=== PATIENT | male | born 1980 | race Caucasian/White ===

== ENCOUNTER 2023-11-15 09:14 | Inpatient (IN) | payer BC ==
[~2023-11-15] VITALS: Ht 177.8 cm; Wt 116.6 kg
[2023-11-15] MEDS: 0.9%NACL 1000ML 2,190 ML IV ONE (09:38)
[2023-11-15] MEDS: ONDANSETRON 4MG INJ IVP ONE (09:45)
[2023-11-15] MEDS: NITROGLYCERIN 1GM OINT 1 INCH/1GM TD ONE (09:46)
[2023-11-15 10:01] LABS: BASOPHILS # (AUTO) 0.03 K/uL (0.00-0.20); BASOPHILS % (AUTO) 0.3 % (0.0-5.0); HEMATOCRIT 50.6 % (42-54); IMMATURE GRANULOCYTE ABSOLUTE 0.04 K/uL (0-1); LYMPHOCYTES # (AUTO) 1.2 K/uL (1.0-4.8); LYMPHOCYTES % (AUTO) 9.7 % (21.0-51.0); MEAN CORPUSCULAR HGB CONC 37.4 g/dL (32.0-36.0); MEAN CORPUSCULAR VOLUME 88.5 fL (79-99); MONOCYTES # (AUTO) 0.9 K/uL (0.1-1.0); MONOCYTES % (AUTO) 7.3 % (3.0-13.0); NEUTROPHILS # (AUTO) 9.8 K/uL (1.8-7.7); NEUTROPHILS % (AUTO) 82.4 % (40.0-77.0); PLATELET COUNT (AUTO) 161 K/uL (130-400); RED BLOOD CELL COUNT(AUTO) 5.72 MIL/uL (4.50-6.20); RED CELL DISTRIBUTION WIDTH 15.2 % (11.0-15.5); WHITE BLOOD COUNT (AUTO) 11.9 K/uL (4.8-10.8)
[2023-11-15 10:12] LABS: CREATININE 1.5 mg/dL (0.5-1.3)
[2023-11-15 10:14] LABS: POTASSIUM 2.8 mmol/L (3.5-5.1)
[2023-11-15 10:17] LABS: SARS-CoV-2, RNA, NAAT NEGATIVE SARS CoV-2 (NEGATIVE)
[2023-11-15 10:23] LABS: INFLUENZA TYPE A Negative For Type A (NEGATIVE); INFLUENZA TYPE B Negative For Type B (NEGATIVE)
[2023-11-15] MEDS: POTASSIUM CHLORIDE 20MEQ/100ML 100 ML IV ONE (10:25)
[2023-11-15] MEDS: KETOROLAC 15MG/ML VIAL (15MG/ML) IV ONE (10:25)
[2023-11-15] MEDS: CEFTRIAXONE 2GM VIAL IVPB ONE (10:38)
[2023-11-15 10:49] LABS: ALBUMIN 4.2 g/dL (3.5-5.0); BILIRUBIN,DIRECT 0.8 mg/dL (0.0-0.3); BILIRUBIN,TOTAL 2.5 mg/dL (0.2-1.0); TOTAL PROTEIN, SERUM 8.1 g/dL (6.0-8.3)
[2023-11-15] MEDS ORDERED: POTASSIUM CHLORIDE 10% ELIXIR 20 MEQ/15 ML UDCUP PO PRN (12:30)
[2023-11-15] MEDS ORDERED: RENAL DOSE IV SCH (12:30)
[2023-11-15] MEDS ORDERED: ZOSYN 3.375GM +NS 50ML IVPB SCH ×2 (13:00→15:00)
[2023-11-15] MEDS: PANTOPRAZOLE 40 MG/VIAL IVP SCH (13:11)
[2023-11-15] MEDS: DOXYCYCLINE 100MG+NS 250ML 250 ML IV SCH (13:12)
[2023-11-15] MEDS: 0.9%NACL 1000ML 1,000 ML IV SCH (13:12)
[2023-11-15 13:39] LABS: HEMOGLOBIN A1C 4.8 % (4.0-6.0); INR 1.11 (0.85-1.15); PROTHROMBIN TIME 11.9 SEC (9.6-11.6)
[2023-11-15 13:40] LABS: PARTIAL THROMBOPLASTIN TIME 26.7 SEC (26.3-35.5)
[2023-11-15 13:55] LABS: MAGNESIUM 1.7 mg/dL (1.80-2.40); THYROID STIMULATING HORMONE 1.1 uIU/mL (0.36-3.74)
[2023-11-15] MEDS ORDERED: DOXY100T2 PO (15:24)
[2023-11-15] MEDS ORDERED: ONDA-243 PO (15:24)
[2023-11-15 15:47] LABS: APPEARANCE,URINE CLEAR (CLEAR); BILIRUBIN,URINE NEGATIVE (NEGATIVE); COLOR,URINE YELLOW (YELLOW); GLUCOSE, URINE (UA) 30 mg/dL (NEGATIVE); KETONES,URINE 100 mg/dL (NEGATIVE); LEUKOCYTE ESTERASE ,URINE NEGATIVE Leu/uL (NEGATIVE); NITRATE,URINE NEGATIVE (NEGATIVE); OCCULT BLOOD,URINE NEGATIVE (NEGATIVE); PH,URINE 6.5 (5.0-8.0); PROTEIN,URINE 100 mg/dL (NEGATIVE)
[2023-11-15 15:49] LABS: ADD UA MICROSCOPIC YES
[2023-11-15 15:51] LABS: MUCUS,URINE RARE LPF (None Seen); RBC,URINE 0-1 /HPF (0-1); SQUAMOUS EPITHELIAL CELL,UR RARE /HPF (0-2); WBC,URINE 0-1 /HPF (0-1)
[2023-11-15 16:00] VITALS: BP 160/101; PULSE 81; RESP 18
[2023-11-15] MEDS: ONDANSETRON 4MG INJ IVP PRN (16:03)
[2023-11-15] MEDS: ACETAMINOPHEN 500 MG TABLET PO PRN (16:07)
[2023-11-15] MEDS: AMLODIPINE 5 MG TAB PO SCH (16:07)
[2023-11-15] MEDS: ZOSYN 3.375GM +NS 50ML IVPB SCH (16:09)
[2023-11-15 16:19] LABS: AMPHET/METH SCREEN,URINE NEGATIVE (NEGATIVE); BARBITURATE SCREEN, URINE NEGATIVE (NEGATIVE); BENZODIAZEPINES SCREEN,URINE NEGATIVE (NEGATIVE); CANNABINOID SCREEN,URINE NEGATIVE (NEGATIVE); COCAINE SCREEN,URINE NEGATIVE (NEGATIVE); OPIATE SCREEN,URINE NEGATIVE (NEGATIVE); PHENCYCLIDINE SCREEN,URINE NEGATIVE (NEGATIVE)
[2023-11-15 16:40] VITALS: O2SAT 100
[2023-11-15 19:05] VITALS: BP 149/96; PULSE 89; RESP 20
[2023-11-15] MEDS ORDERED: PHARMACY COMMUNICATION MISC PRN (19:30)
[2023-11-15] MEDS: KCL 20 MEQ ERTAB PO PRN (19:48)
[2023-11-15] MEDS: FAMOTIDINE 20MG TAB PO SCH (19:49)
[2023-11-15] MEDS: THIAMINE HCL 100 MG/ML 2ML VIAL IVP SCH (19:50)
[2023-11-15 20:00] VITALS: O2SAT 97
[2023-11-16] VITALS (27 sets, daily range): BP systolic 117–197; BP diastolic 78–121; PULSE 69–111; RESP 18–20; O2SAT 96–97
[2023-11-16 04:27] LABS: BASOPHILS # (AUTO) 0.02 K/uL (0.00-0.20); BASOPHILS % (AUTO) 0.2 % (0.0-5.0); HEMATOCRIT 40.7 % (42-54); IMMATURE GRANULOCYTE ABSOLUTE 0.04 K/uL (0-1); LYMPHOCYTES # (AUTO) 0.9 K/uL (1.0-4.8); LYMPHOCYTES % (AUTO) 9.1 % (21.0-51.0); MEAN CORPUSCULAR HEMOGLOBIN 32.7 pg (27.0-33.0); MEAN CORPUSCULAR HGB CONC 35.6 g/dL (32.0-36.0); MEAN CORPUSCULAR VOLUME 91.9 fL (79-99); MONOCYTES # (AUTO) 0.7 K/uL (0.1-1.0); MONOCYTES % (AUTO) 7.3 % (3.0-13.0); NEUTROPHILS # (AUTO) 8.2 K/uL (1.8-7.7); PLATELET COUNT (AUTO) 122 K/uL (130-400); RED BLOOD CELL COUNT(AUTO) 4.43 MIL/uL (4.50-6.20); RED CELL DISTRIBUTION WIDTH 15.2 % (11.0-15.5); WHITE BLOOD COUNT (AUTO) 9.8 K/uL (4.8-10.8)
[2023-11-16 04:51] LABS: ALBUMIN 3.1 g/dL (3.5-5.0); BILIRUBIN,TOTAL 1.6 mg/dL (0.2-1.0); CREATININE 1.2 mg/dL (0.5-1.3); MAGNESIUM 1.8 mg/dL (1.80-2.40); POTASSIUM 3.5 mmol/L (3.5-5.1); TOTAL PROTEIN, SERUM 6.2 g/dL (6.0-8.3)
[2023-11-16] MEDS: MAGNESIUM 2GM PREMIX 50ML 50 ML IV SCH (05:41)
[2023-11-16] MEDS: HYDRALAZINE 20MG/ML VIAL IV PRN (07:43)
[2023-11-16] MEDS: HYDROCHLOROTHIAZIDE 25 MG TABLET PO SCH (08:45)
[2023-11-16] MEDS: LOSARTAN 50 MG TABLET PO SCH (08:45)
[2023-11-16] MEDS: CHLORDIAZEPOXIDE HCL 25 MG CAP PO PRN (10:06)
[2023-11-16] MEDS: AMLODIPINE 5 MG TAB PO SCH (11:06)
[2023-11-16] MEDS: HYDRALAZINE 25MG TABLET PO SCH ×2 (11:07→13:00)
[2023-11-16] MEDS: LABETALOL 20MG SYG IV ONE ×2 (11:19)
[2023-11-16] MEDS: LORAZEPAM 2 MG/ML 1 ML VIAL IVP PRN (13:52)
[2023-11-16 19:37] LABS: INR 1.01 (0.85-1.15); PROTHROMBIN TIME 10.9 SEC (9.6-11.6)
[2023-11-16 19:38] LABS: PARTIAL THROMBOPLASTIN TIME 27.3 SEC (26.3-35.5)
[2023-11-17] VITALS (11 sets, daily range): BP systolic 150–195; BP diastolic 85–118; PULSE 93–117; RESP 18–20; O2SAT 98–100
[2023-11-17 04:04] LABS: BASOPHILS # (AUTO) 0.04 K/uL (0.00-0.20); BASOPHILS % (AUTO) 0.4 % (0.0-5.0); EOSINOPHILS # (AUTO) 0.01 K/uL (0.00-0.70); EOSINOPHILS % (AUTO) 0.1 % (0.0-8.0); HEMATOCRIT 45.8 % (42-54); LYMPHOCYTES % (AUTO) 9.3 % (21.0-51.0); MEAN CORPUSCULAR HGB CONC 34.9 g/dL (32.0-36.0); MEAN CORPUSCULAR VOLUME 91.6 fL (79-99); MONOCYTES # (AUTO) 0.9 K/uL (0.1-1.0); MONOCYTES % (AUTO) 8.2 % (3.0-13.0); NEUTROPHILS # (AUTO) 8.5 K/uL (1.8-7.7); PLATELET COUNT (AUTO) 131 K/uL (130-400); RED CELL DISTRIBUTION WIDTH 15.4 % (11.0-15.5); WHITE BLOOD COUNT (AUTO) 10.5 K/uL (4.8-10.8)
[2023-11-17 04:14] LABS: MAGNESIUM 2.1 mg/dL (1.80-2.40); PHOSPHORUS 3.4 mg/dL (2.5-4.9)
[2023-11-17 04:31] LABS: POTASSIUM 2.6 mmol/L (3.5-5.1)
[2023-11-17] MEDS: POTASSIUM CHLORIDE 10MEQ/100ML 100 ML IV PRN (04:34)
[2023-11-17] MEDS: KCL 20 MEQ ERTAB PO ONE (05:39)
[2023-11-17] MEDS: POTASSIUM CHLORIDE 10MEQ SR TAB PO PRN (09:47)
[2023-11-17] MEDS: ENOXAPARIN SODIUM 40 MG/0.4 ML SYRINGE SQ SCH (21:16)
[2023-11-18] VITALS (7 sets, daily range): BP systolic 155–173; BP diastolic 77–106; PULSE 109–118; RESP 18–20; O2SAT 96
[2023-11-18 04:08] LABS: BASOPHILS # (AUTO) 0.04 K/uL (0.00-0.20); BASOPHILS % (AUTO) 0.4 % (0.0-5.0); EOSINOPHILS # (AUTO) 0.07 K/uL (0.00-0.70); EOSINOPHILS % (AUTO) 0.7 % (0.0-8.0); HEMATOCRIT 47.5 % (42-54); IMMATURE GRANULOCYTE ABSOLUTE 0.07 K/uL (0-1); LYMPHOCYTES # (AUTO) 0.9 K/uL (1.0-4.8); LYMPHOCYTES % (AUTO) 9.3 % (21.0-51.0); MEAN CORPUSCULAR HEMOGLOBIN 32.2 pg (27.0-33.0); MEAN CORPUSCULAR HGB CONC 34.9 g/dL (32.0-36.0); MEAN CORPUSCULAR VOLUME 92.1 fL (79-99); MONOCYTES # (AUTO) 0.7 K/uL (0.1-1.0); MONOCYTES % (AUTO) 7.6 % (3.0-13.0); NEUTROPHILS # (AUTO) 7.8 K/uL (1.8-7.7); NEUTROPHILS % (AUTO) 81.3 % (40.0-77.0); PLATELET COUNT (AUTO) 156 K/uL (130-400); RED BLOOD CELL COUNT(AUTO) 5.16 MIL/uL (4.50-6.20); RED CELL DISTRIBUTION WIDTH 15.3 % (11.0-15.5); WHITE BLOOD COUNT (AUTO) 9.6 K/uL (4.8-10.8)
[2023-11-18 04:32] LABS: CREATININE 1.2 mg/dL (0.5-1.3); POTASSIUM 3.1 mmol/L (3.5-5.1)
[2023-11-18] MEDS: LACTULOSE 20 GM/30 ML UDCUP PO SCH (14:07)
[2023-11-18] MEDS: HYDRALAZINE 25MG TABLET PO SCH (16:01)
[2023-11-19] VITALS (10 sets, daily range): BP systolic 132–177; BP diastolic 93–109; PULSE 98–114; RESP 18–20; O2SAT 94–99
[2023-11-19] MEDS ORDERED: LACTULOSE 20 GM/30 ML UDCUP PO PRN (00:30)
[2023-11-19 03:32] LABS: BASOPHILS # (AUTO) 0.05 K/uL (0.00-0.20); BASOPHILS % (AUTO) 0.5 % (0.0-5.0); EOSINOPHILS # (AUTO) 0.11 K/uL (0.00-0.70); EOSINOPHILS % (AUTO) 1.2 % (0.0-8.0); HEMATOCRIT 45.8 % (42-54); IMMATURE GRANULOCYTE ABSOLUTE 0.06 K/uL (0-1); LYMPHOCYTES % (AUTO) 10.9 % (21.0-51.0); MEAN CORPUSCULAR HGB CONC 34.5 g/dL (32.0-36.0); MEAN CORPUSCULAR VOLUME 95.6 fL (79-99); MONOCYTES # (AUTO) 0.7 K/uL (0.1-1.0); MONOCYTES % (AUTO) 7.8 % (3.0-13.0); NEUTROPHILS # (AUTO) 7.2 K/uL (1.8-7.7); NEUTROPHILS % (AUTO) 78.9 % (40.0-77.0); PLATELET COUNT (AUTO) 170 K/uL (130-400); RED BLOOD CELL COUNT(AUTO) 4.79 MIL/uL (4.50-6.20); RED CELL DISTRIBUTION WIDTH 15.2 % (11.0-15.5); WHITE BLOOD COUNT (AUTO) 9.1 K/uL (4.8-10.8)
[2023-11-19 03:50] LABS: CREATININE 1.1 mg/dL (0.5-1.3)
[2023-11-19 03:55] LABS: POTASSIUM 2.9 mmol/L (3.5-5.1)
[2023-11-19] MEDS: METOPROLOL TARTRATE 25 MG TAB PO SCH (14:17)
[2023-11-19 14:53] LABS: MAGNESIUM 1.9 mg/dL (1.80-2.40); POTASSIUM 3.2 mmol/L (3.5-5.1)
[2023-11-19] MEDS: POTASSIUM CHLORIDE 20MEQ/100ML 100 ML IV SCH (15:50)
[2023-11-19] MEDS: KCL 20 MEQ ERTAB PO ONE (15:51)
[2023-11-20 03:27] LABS: HEMATOCRIT 45.7 % (42-54); MEAN CORPUSCULAR HEMOGLOBIN 31.9 pg (27.0-33.0); MEAN CORPUSCULAR HGB CONC 33.7 g/dL (32.0-36.0); MEAN CORPUSCULAR VOLUME 94.6 fL (79-99); RED BLOOD CELL COUNT(AUTO) 4.83 MIL/uL (4.50-6.20); RED CELL DISTRIBUTION WIDTH 15.1 % (11.0-15.5); WHITE BLOOD COUNT (AUTO) 8.3 K/uL (4.8-10.8)
[2023-11-20 03:51] LABS: ALBUMIN 2.9 g/dL (3.5-5.0); BILIRUBIN,TOTAL 1.1 mg/dL (0.2-1.0); CREATININE 1.2 mg/dL (0.5-1.3); POTASSIUM 3.6 mmol/L (3.5-5.1); TOTAL PROTEIN, SERUM 6.2 g/dL (6.0-8.3)
[2023-11-20 04:19] VITALS: BP 148/95; PULSE 104; RESP 20
[2023-11-20 07:25] VITALS: O2SAT 100
[2023-11-20 08:31] VITALS: BP 156/100; PULSE 111; RESP 18
[2023-11-20 12:33] VITALS: BP 167/110; PULSE 101; RESP 18
[2023-11-20] MEDS ORDERED: MINO2.5T3 PO (14:54)
[2023-11-20] MEDS ORDERED: AMLO5TAB4 PO (14:54)
[2023-11-20] MEDS ORDERED: LOSA-418 PO (14:54)
[2023-11-20] MEDS ORDERED: HYDR25 PO (14:54)
[2023-11-20] MEDS ORDERED: METO50TA18 PO (14:54)
[2023-11-20 15:08] VITALS: BP 142/97; PULSE 100; RESP 19
[2023-11-22 00:09] LABS: THYROID-STIMULATING IMMUNOGLOB <0.10 IU/L (0.00-0.55)
== END 2023-11-20 15:30 | disposition home or self-care (01) | DRG 304 ==
LOC: EDH 09:14 → EDHIP 12:05 → 2DH 16:52
PROVIDERS: ADMIT Internal Medicine; ATTEND Internal Medicine
PROC: HZ2ZZZZ Detoxification Services for Substance Abuse Treatment (ICD-10-PCS; principal; 2023-11-15)
PROC: 05HC33Z Insertion of Infusion Device into Left Basilic Vein, Percutaneous Approach (ICD-10-PCS; 2023-11-17)
PROC: B54NZZA Ultrasonography of Left Upper Extremity Veins, Guidance (ICD-10-PCS; 2023-11-17)
DX: I16.0 Hypertensive urgency (principal); K76.7 Hepatorenal syndrome; R65.11 Systemic inflammatory response syndrome (SIRS) of non-infectious origin with acute organ dysfunction; F10.239 Alcohol dependence with withdrawal, unspecified; I24.89 Other forms of acute ischemic heart disease; E87.1 Hypo-osmolality and hyponatremia; N17.9 Acute kidney failure, unspecified; M62.82 Rhabdomyolysis; I82.611 Acute embolism and thrombosis of superficial veins of right upper extremity; Z20.822 Contact with and (suspected) exposure to COVID-19; E86.0 Dehydration; G47.33 Obstructive sleep apnea (adult) (pediatric); E86.1 Hypovolemia; E87.6 Hypokalemia; I80.8 Phlebitis and thrombophlebitis of other sites; I10 Essential (primary) hypertension; E66.01 Morbid (severe) obesity due to excess calories; H53.8 Other visual disturbances; I1A.0 Resistant hypertension; K59.00 Constipation, unspecified; Z79.899 Other long term (current) drug therapy; Z98.84 Bariatric surgery status; Z80.0 Family history of malignant neoplasm of digestive organs; Z86.73 Personal history of transient ischemic attack (TIA), and cerebral infarction without residual deficits; Z68.36 Body mass index [BMI] 36.0-36.9, adult
CPT/HCPCS: 36415; 70450; 71045; 74176; 76536; 76770; 78582; 80048; 80053; 80076; 80305; 80400; 81001; 82088; 82550; 83036; 83497; 83605; 83735; 83835; 84100; 84132; 84145; 84244; 84439; 84443; 84445; 84480; 84481; 84484; 85025; 85027; 85378; 85610; 85651; 85730; 86000; 86140; 86757; 87040; 87086; 87635; 87804; 93005; 93306; 93971; 93975; A9540; A9558; C1894; G0378; J0360; J0696; J1650; J1885; J2060; J2405; J2470; J2543; J3411; J3475; J3480; J3490; C1750